=== PATIENT | male | born 1960 | race Caucasian/White ===

== ENCOUNTER → 2020-12-10 | Outpatient (CLI) | payer BC ==
--- NOTE | 2020-12-10 16:46 | RAD ---
EXAM: Cervical spine, 5 views. HISTORY: Pain. COMPARISON: None. FINDINGS: 5 views of the cervical spine are obtained. There is mild anterolisthesis of C4 on C5. Ther e is degenerative endplate remodeling with disc space narrowing and osteophytosis at C5-C6 and C6-C7. There is multilevel facet arthropathy. There is no fracture. IMPRESSION: 1. Degenerative change primarily at C5-C6 and C6-C7. 2. No acute osseous finding. Electronically signed by: Lorelei Galeana MD (12/10/2020 4:44 PM) [email or web address]
--- NOTE | 2020-12-10 16:49 | RAD ---
EXAM: Left hip and pelvis, 3 views. HISTORY: Pain. COMPARISON: None. FINDINGS: A frontal view the pelvis and 2 views of the left hip are obtained. There is bilateral hip joint space narrowing. There is right greater than left hip degenerative subchondral sclerosis and ma rginal acetabular and femoral head spurring. There is degenerative change involving the visualized lo wer lumbar spine. There is no fracture, dislocation or subluxation. IMPRESSION: 1. Moderate right and mild left hip osteoarthritis. 2. Degenerative change at the lower lumbar levels. Electronically signed by: Lorelei Galeana MD (12/10/2020 4:47 PM) [email or web address]
== END ==
LOC: RAD 14:43
PROVIDERS: ATTEND Physician Assistant Medical
DX: M16.12 Unilateral primary osteoarthritis, left hip (principal); M47.816 Spondylosis without myelopathy or radiculopathy, lumbar region; M48.02 Spinal stenosis, cervical region; M47.812 Spondylosis without myelopathy or radiculopathy, cervical region
CPT/HCPCS: 72050; 73502

== ENCOUNTER → 2021-04-25 | Outpatient (CLI) | payer BC ==
[~2021-04-25] MED LIST: IBUP-577 PO; LOSA25TA PO; tramadol
== END ==
LOC: LAB 11:43
PROVIDERS: ATTEND Internal Medicine Gastroenterology
DX: Z01.812 Encounter for preprocedural laboratory examination (principal); Z20.822 Contact with and (suspected) exposure to COVID-19; K21.9 Gastro-esophageal reflux disease without esophagitis
CPT/HCPCS: U0003

== ENCOUNTER → 2021-04-29 | Day surgery (SDC) | payer BC ==
[~2021-04-29] MED LIST changes: +LIDOCAINE 2% PF 5 ML VIAL. ONE; +PROPOFOL 10,000 MCG/ML (20ML) VIAL IV ONE
[2021-04-29 14:17] VITALS: BP 122/66
== END | disposition home or self-care (01) ==
LOC: SURG 11:07
PROVIDERS: ATTEND Internal Medicine Gastroenterology
DX: Z12.11 Encounter for screening for malignant neoplasm of colon (principal); K21.9 Gastro-esophageal reflux disease without esophagitis; R12 Heartburn; K63.89 Other specified diseases of intestine; K31.89 Other diseases of stomach and duodenum; I10 Essential (primary) hypertension; E11.9 Type 2 diabetes mellitus without complications; M19.90 Unspecified osteoarthritis, unspecified site; E55.9 Vitamin D deficiency, unspecified; Z79.899 Other long term (current) drug therapy; Z98.890 Other specified postprocedural states; Z72.89 Other problems related to lifestyle; Z91.013 Allergy to seafood; Z88.8 Allergy status to other drugs, medicaments and biological substances
CPT/HCPCS: 43239; 45378; J2001; J2704; G0105

== ENCOUNTER → 2021-05-02 | Outpatient (CLI) | payer BC ==
[2021-04-29 14:17] VITALS: BP 122/66
[~2021-05-02] MED LIST changes: -LIDOCAINE 2% PF 5 ML VIAL. ONE; -PROPOFOL 10,000 MCG/ML (20ML) VIAL IV ONE
--- NOTE | 2021-05-02 17:57 | RAD ---
Double contrast barium enema study 05/02/2021 CLINICAL HISTORY: Incomplete colonoscopy. TECHNIQUE: A double contrast barium enema study was performed under fluoroscopic and radiographic con trol. The total fluoroscopic time for this study is 4.8 minutes. 10 digital spot radiographs were obt ained. FINDINGS: Two AP supine digital radiographs of the abdomen/pelvis were obtained as a [employer]. These dem onstrate a nonobstructive bowel gas pattern. No radiopaque calculus is seen. Mild S-shaped curvature of the thoracolumbar spine is noted. Degenerative changes are seen involving the lower thoracic and t hroughout the lumbar spine along with both hips. The entire colon is distended with barium and air. The cecum is in its normal location within the rig ht lower quadrant of the abdomen. Reflux of contrast into the appendix and terminal ileum is seen. Sc attered diverticula are seen involving the sigmoid colon. No annular constricting lesion or mucosal a bnormality is seen. No extrinsic mass effect upon the spinal large bowel is noted. IMPRESSION: Sigmoid diverticulosis. Otherwise negative study. Electronically signed by: Juan Miguel Aviles MD (05/02/2021 5:55 PM) [place] [id number]
== END ==
LOC: RAD 08:23
PROVIDERS: ATTEND Internal Medicine Gastroenterology
DX: Z12.11 Encounter for screening for malignant neoplasm of colon (principal); K57.30 Diverticulosis of large intestine without perforation or abscess without bleeding; K63.89 Other specified diseases of intestine
CPT/HCPCS: 74270